=== PATIENT | female | born 1990 | race Caucasian/White ===

== ENCOUNTER 2017-04-20 05:34 | Inpatient (IN) | payer MEDICAID ==
[~2017-04-20] VITALS: Ht 160 cm; Wt 78.2 kg
[2017-04-20] MEDS ORDERED: OXYTOCIN 30U/ 0.9% NaCL 500ML 500 ML IV SCH (05:35)
[2017-04-20] MEDS ORDERED: LACTATED RINGERS 1,000 ML IV SCH ×3 (05:35→08:27)
[2017-04-20] MEDS ORDERED: NEWBORN KIT ONE (05:40)
[2017-04-20] MEDS ORDERED: METOCLOPRAMIDE 5 MG/ML, 2ML ONE ×2 (05:40→07:23)
[2017-04-20] MEDS ORDERED: SODIUM CITRATE/CITRIC ACID 30 ML UDC ONE ×2 (05:40→07:23)
[2017-04-20] MEDS ORDERED: OXYTOCIN 30U/ 0.9% NaCL 500ML 500 ML ONE ×2 (05:41→07:12)
[2017-04-20] MEDS ORDERED: LACTATED RINGERS 1,000 ML IVBOLUS ONE (06:00)
[2017-04-20] MEDS ORDERED: METOCLOPRAMIDE 5 MG/ML, 2ML IV ONE (06:00)
[2017-04-20] MEDS ORDERED: SODIUM CITRATE/CITRIC ACID 30 ML UDC PO ONE (06:00)
[2017-04-20] MEDS ORDERED: PLEASE ENTER ALLERGIES MC SCH (06:00)
[2017-04-20 06:05] VITALS: BP 119/73
[2017-04-20 06:29] LABS: BASOPHILS % (AUTO) 0 % (0-1); EOSINOPHILS # (AUTO) 0.05 x10^3/uL (0-0.4); EOSINOPHILS % (AUTO) 1 % (1-7); LYMPHOCYTES # (AUTO) 2.11 x10^3/uL (1-3.4); LYMPHOCYTES % (AUTO) 23 % (22-44); MD NO; MEAN CORPUSCULAR HEMOGLOBIN 32.6 pg (27.0-34.8); MEAN CORPUSCULAR HGB CONC 34.4 g/dL (32.4-35.8); MEAN CORPUSCULAR VOLUME 94.7 fL (80-100); MEAN PLATELET VOLUME 9.7 fL (7.4-10.4); MONOCYTES # (AUTO) 0.57 x10^3/uL (0.2-0.8); MONOCYTES % (AUTO) 6 % (2-9); NEUTROPHILS # (AUTO) 6.29 x10^3/uL (1.8-6.8); NEUTROPHILS % (AUTO) 70 % (42-75); PLATELET COUNT 173 x10^3/uL (130-400); RED BLOOD COUNT 3.87 x10^6/uL (3.82-5.3); RED CELL DISTRIBUTION WIDTH 13.2 % (9.6-15.2)
[2017-04-20] MEDS ORDERED: KETOROLAC 30 MG/1 ML ONE (07:23)
[2017-04-20] MEDS ORDERED: CEFAZOLIN 1,000 MG ONE (07:23)
[2017-04-20] MEDS ORDERED: EPHEDRINE 50 MG/ML, 1ML ONE (07:23)
[2017-04-20] MEDS ORDERED: OXYTOCIN 10 UNITS/ML, 1ML ONE ×2 (07:23)
[2017-04-20] MEDS: OXYTOCIN 30U/ 0.9% NaCL 500ML 500 ML IV SCH ×2 (08:27→18:28)
[2017-04-20] MEDS ORDERED: HYDROcodone/APAP 5/325 TABLET PO PRN (08:30)
[2017-04-20] MEDS ORDERED: MISOPROSTOL 200 MCG TABLET PR PRN (08:30)
[2017-04-20] MEDS ORDERED: ONDANSETRON 2MG/ML, 2ML IV PRN (08:30)
[2017-04-20] MEDS ORDERED: MEPERIDINE/PF 100 MG/ML IVPush PRN (08:30)
[2017-04-20] MEDS ORDERED: ACETAMINOPHEN 325 MG TABLET PO PRN ×2 (08:30)
[2017-04-20] MEDS ORDERED: SIMETHICONE 80 MG CHEW TAB PO PRN (08:30)
[2017-04-20] MEDS ORDERED: METHYLERGONOVINE 0.2 MG/ML IM PRN (08:30)
[2017-04-20] MEDS: LACTATED RINGERS 1,000 ML IV SCH ×2 (09:04→18:28)
[2017-04-20] MEDS ORDERED: morphine SULFATE 10 MG/ML, 1ML ONE (09:55)
[2017-04-20] MEDS: MORPHINE SULFATE 4 MG/ML, 1ML IVPush PRN ×3 (10:05→10:17)
[2017-04-20 11:24] VITALS: BP 130/86
[2017-04-20] MEDS: PRENATAL VIT/IRON/FA 1 EACH TABLET PO SCH (11:51)
[2017-04-20] MEDS: HYDROcodone/APAP 5/325 TABLET PO PRN ×3 (12:34→20:42)
[2017-04-20] MEDS: KETOROLAC 30 MG/1 ML IV SCH ×2 (14:18→20:14)
[2017-04-20 15:56] VITALS: BP 125/89
[2017-04-20 16:03] LABS: BASOPHILS # (AUTO) 0.01 x10^3/uL (0-0.1); BASOPHILS % (AUTO) 0 % (0-1); EOSINOPHILS # (AUTO) 0.01 x10^3/uL (0-0.4); EOSINOPHILS % (AUTO) 0 % (1-7); LYMPHOCYTES # (AUTO) 1.77 x10^3/uL (1-3.4); LYMPHOCYTES % (AUTO) 14 % (22-44); MD NO; MEAN CORPUSCULAR HEMOGLOBIN 32.9 pg (27.0-34.8); MEAN CORPUSCULAR HGB CONC 34.6 g/dL (32.4-35.8); MEAN CORPUSCULAR VOLUME 95.1 fL (80-100); MEAN PLATELET VOLUME 9.8 fL (7.4-10.4); MONOCYTES # (AUTO) 0.58 x10^3/uL (0.2-0.8); MONOCYTES % (AUTO) 5 % (2-9); NEUTROPHILS # (AUTO) 9.92 x10^3/uL (1.8-6.8); NEUTROPHILS % (AUTO) 81 % (42-75); PLATELET COUNT 143 x10^3/uL (130-400); RED BLOOD COUNT 3.62 x10^6/uL (3.82-5.3); RED CELL DISTRIBUTION WIDTH 13.3 % (9.6-15.2)
[2017-04-20 20:00] VITALS: BP 116/69
[2017-04-20] MEDS: DOCUSATE 100 MG CAPSULE PO PRN (20:42)
[2017-04-20] MEDS ORDERED: MEASLES,MUMPS&RUBELLA VACC/PF 0.5 ML SQ-VACC ONE (21:00)
[2017-04-20] MEDS ORDERED: DIPH,PERTUSS(ACELL),TET VAC/PF NC IM-VACC ONE (21:00)
[2017-04-21] VITALS: BP 121/78
[2017-04-21] MEDS: HYDROcodone/APAP 5/325 TABLET PO PRN ×6 (00:40→23:49)
[2017-04-21] MEDS: KETOROLAC 30 MG/1 ML IV SCH ×2 (01:59→08:25)
[2017-04-21 04:00] VITALS: BP 112/72
[2017-04-21] MEDS: LACTATED RINGERS 1,000 ML IV SCH (04:27)
[2017-04-21] MEDS: OXYTOCIN 30U/ 0.9% NaCL 500ML 500 ML IV SCH (04:27)
[2017-04-21 07:30] VITALS: BP 120/83
[2017-04-21] MEDS: DOCUSATE 100 MG CAPSULE PO PRN ×2 (08:25→23:49)
[2017-04-21] MEDS: PRENATAL VIT/IRON/FA 1 EACH TABLET PO SCH (08:25)
[2017-04-21] MEDS: IBUPROFEN 800 MG TABLET PO PRN ×2 (15:53→23:49)
[2017-04-21 20:00] VITALS: BP 103/59
[2017-04-21] MEDS ORDERED: MEASLES,MUMPS&RUBELLA VACC/PF 0.5 ML SQ-VACC ONE (20:05)
[2017-04-22] MEDS: HYDROcodone/APAP 5/325 TABLET PO PRN ×3 (04:52→13:17)
[2017-04-22 07:25] VITALS: BP 114/79
[2017-04-22] MEDS: IBUPROFEN 800 MG TABLET PO PRN (08:15)
[2017-04-22] MEDS: DOCUSATE 100 MG CAPSULE PO PRN (08:15)
[2017-04-22] MEDS: PRENATAL VIT/IRON/FA 1 EACH TABLET PO SCH (08:15)
[2017-04-22] MEDS ORDERED: IBUP-1222 PO (12:19)
[2017-04-22] MEDS ORDERED: HYDR-3240 PO (12:19)
== END 2017-04-22 13:20 | disposition home or self-care (01) | DRG 766 ==
LOC: LDIP 05:34 → 2NW 10:43
PROVIDERS: ADMIT Obstetrics & Gynecology; ATTEND Obstetrics & Gynecology
PROC: 10D00Z1 Extraction of Products of Conception, Low, Open Approach (ICD-10-PCS; principal; 2017-04-20)
PROC: 3E0234Z Introduction of Serum, Toxoid and Vaccine into Muscle, Percutaneous Approach (ICD-10-PCS; 2017-04-20)
DX: O32.1XX0 Maternal care for breech presentation, not applicable or unspecified (principal); Z23 Encounter for immunization; Z37.0 Single live birth; Z3A.39 39 weeks gestation of pregnancy; Z85.820 Personal history of malignant melanoma of skin
CPT/HCPCS: 36415; 85025; 86850; 86900; 90715; J0690; J1885; J2590; J2765; J7120

== ENCOUNTER 2017-04-30 13:21 | Emergency (ER) | payer MEDICAID ==
[~2017-04-30] VITALS: Ht 160 cm; Wt 71.4 kg
[~2017-04-30 13:21] MED LIST: HYDR-3240 PO; IBUP-1222 PO
[2017-04-30] MEDS ORDERED: KETOROLAC 30 MG/1 ML IM ONE (14:00)
[2017-04-30 14:24] LABS: BASOPHILS # (AUTO) 0.05 x10^3/uL (0-0.1); BASOPHILS % (AUTO) 1 % (0-1); EOSINOPHILS # (AUTO) 0.14 x10^3/uL (0-0.4); EOSINOPHILS % (AUTO) 2 % (1-7); LYMPHOCYTES # (AUTO) 2.71 x10^3/uL (1-3.4); LYMPHOCYTES % (AUTO) 35 % (22-44); MD NO; MEAN CORPUSCULAR HEMOGLOBIN 32.2 pg (27.0-34.8); MEAN CORPUSCULAR VOLUME 94.6 fL (80-100); MEAN PLATELET VOLUME 7.9 fL (7.4-10.4); MONOCYTES # (AUTO) 0.45 x10^3/uL (0.2-0.8); MONOCYTES % (AUTO) 6 % (2-9); NEUTROPHILS # (AUTO) 4.43 x10^3/uL (1.8-6.8); NEUTROPHILS % (AUTO) 57 % (42-75); PLATELET COUNT 357 x10^3/uL (130-400); RED BLOOD COUNT 4.08 x10^6/uL (3.82-5.3); RED CELL DISTRIBUTION WIDTH 12.8 % (9.6-15.2)
[2017-04-30 14:37] LABS: ANION GAP 5 mmol/L (5-15); CALCIUM 8.2 mg/dL (8.5-10.1); CHLORIDE 111 mmol/L (98-107)
[2017-04-30 14:40] LABS: ALANINE AMINOTRANSFERASE 26 U/L (12-78); ALKALINE PHOSPHATASE 104 U/L (45-117); BILIRUBIN,TOTAL 0.3 mg/dL (0.2-1.0); CREATININE 0.99 mg/dL (0.55-1.02); TOTAL PROTEIN 6.9 g/dL (6.4-8.2)
[2017-04-30] MEDS ORDERED: KETOROLAC 30 MG/1 ML ONE ×2 (14:40)
[2017-04-30 15:24] LABS: MICROSCOPIC AUTO
[2017-04-30 15:34] LABS: CULTURE INDICATED? NO
[2017-04-30 15:45] VITALS: BP 137/90
== END 2017-04-30 16:01 | disposition home or self-care (01) ==
LOC: ED 15:31
DX: S46.911A Strain of unspecified muscle, fascia and tendon at shoulder and upper arm level, right arm, initial encounter (principal); Z85.820 Personal history of malignant melanoma of skin; X58.XXXA Exposure to other specified factors, initial encounter; Y93.89 Activity, other specified; Y92.89 Other specified places as the place of occurrence of the external cause; Y99.8 Other external cause status
CPT/HCPCS: 36415; 71046; 73030; 80053; 81001; 85025; 96372; 99285; J1885